=== PATIENT | female | born 1950 ===

== ENCOUNTER 2017-03-22 02:34 | Outpatient (CLI) | payer MEDICARE, BC | END 2017-03-22 23:59 | disposition home or self-care (01) | LOC: DIABETIC 02:34 | PROVIDERS: ATTEND Internal Medicine | DX: E11.9 Type 2 diabetes mellitus without complications (principal) | CPT/HCPCS: G0108 ==

== ENCOUNTER 2017-07-27 04:57 | Outpatient (CLI) | payer MEDICARE, BC | END 2017-07-27 23:59 | disposition home or self-care (01) | LOC: DIABETIC 04:57 | PROVIDERS: ATTEND Internal Medicine | DX: E11.9 Type 2 diabetes mellitus without complications (principal) | CPT/HCPCS: G0108 ==